=== PATIENT | male | born 1945 | race Caucasian/White ===

== ENCOUNTER → 2017-02-18 | Outpatient (CLI) | payer OTHER, MEDICARE | LOC: FIMAGING 13:42 → EDSTATUS 13:46 | PROVIDERS: ATTEND Orthopaedic Surgery Orthopaedic Surgery of the Spine | DX: M50.322 Other cervical disc degeneration at C5-C6 level (principal); M47.812 Spondylosis without myelopathy or radiculopathy, cervical region; M46.92 Unspecified inflammatory spondylopathy, cervical region ==

== ENCOUNTER 2017-04-09 05:45 | Inpatient (IN) | payer OTHER, MEDICARE ==
--- NOTE | 2017-04-08 16:58 | GHP ---
[f rep st] PREOP HISTORY AND PHYSICAL Corrected report DATE OF ADMISSION: 04/09/2017 HISTORY: The patient is a pleasant 72-year-old gentleman, who is left-hand dominant. He presented to me with a new problem, including bilateral scapular pain, loss of balance, and cervical spine pain. He also has paresthesias in both hands. On evaluation, the patient was found to have significant loss of range of motion, as well as spinal stenosis, severe at C5-6, moderate to severe at C4-5 and C6-7. He was also found to have mild myelopathy on exam. Therefore , surgery was recommended. He is electing to undergo the aforementioned surgery , which will be C4-C7 anterior diskectomy, fusion with instrumentation, as a 23- hour observation stay. Patient denies any loss of bowel or bladder control. Of note, I have done 2 prior lumbar surgeries for him. The first was an L2-L5 laminectomy and the second was a right-sided L4-5 microdiskectomy. He has done well from that standpoint. With regard to the patient's cervical spine, he has tried anti-inflammatories, rest, and a home stretching exercise regimen. Nonetheless, his symptoms have progressively worsened. On a 1-10 scale, he rates his daily pain as 6. SOCIAL HISTORY: Negative for tobacco and positive for social use of alcohol. Patient is retired. FAMILY HISTORY: Diabetes mellitus, congestive heart failure. PAST MEDICAL HISTORY: 1. Hypertension. 2. Hypercholesterolemia. 3. Nonocclusive coronary artery disease. PAST SURGICAL HISTORY: 1. Appendectomy. 2. Finger surgery. 3. Shoulder surgery. 4. The aforementioned L2-L5 laminectomy, followed by revision right L4-5 microdiskectomy. 5. Total hip arthroplasty. ALLERGIES: To medications are none. MEDICATIONS: 1. Lisinopril-hydrochlorothiazide 12/27.5. 2. Multivitamin. 3. Glucosamine. 4. He has stopped his aspirin. PHYSICAL EXAMINATION: VITALS SIGNS: Patient is 5 feet 10 inches tall and weighs 185 pounds. GENERAL: He is alert and oriented x3. CARDIAC: Regular rate and rhythm without detectable murmur, rub, or gallop. LUNGS: Clear to auscultation. He has no wheezing or rhonchi. NECK: Cervical range of motion is limited in left and right rotation. NEUROLOGIC: Sensation to bilateral upper extremities is intact with the exception of the left radial forearm is diminished. Patellar and Achilles reflexes are 2/4, biceps, brachial radialis, triceps reflexes are 2/4. Spurling test is negative x2. Patient is tender to palpation along the medial border of bilateral scapulae. RADIOGRAPHIC STUDIES: Plain films show severe degenerative disk disease with some scoliosis at C5-C7. MRI shows severe degenerative disk disease C5-6, C6-7 , moderate plus stenosis C6-7, severe stenosis seen C5-6 and the left disk herniation, moderate stenosis C4-5, and bilateral facet arthropathy C3-4 and C4- 5. There is no myelomalacia. Dr. Hunter Marquis saw the patient for cardiac clearance today and stated there are no cardiac contraindications to proceeding with the necessary noncardiac surgery. IMPRESSION: Severe spinal stenosis C5-6, moderate plus stenosis C4-5 and C6-7, with mild myelopathy. PLAN: The patient will undergo a C4-7 anterior diskectomy, fusion with instrumentation at [facility]. I expect just a 1 night stay postoperatively. Patient understands potential risks, benefits, and possible complications including, but not limited to, dural tear with CSF leak, meningitis, nerve root injury, partial or complete paralysis, infection, need for further surgery, dysphagia, junctional breakdown, nonunion, DVT, PE, pneumonia, stroke, heart attack, hemorrhage, blindness, and . Patient's questions were answered thoroughly, and he will be n.p.o. after midnight tonight. Copy requested to: Presurgery testing /[id number]/MODL elizabeth acc#, 04/09/17, linda HAWK
[2017-04-09] MEDS ORDERED: LR 1,000 ML IV ONE (06:03)
[2017-04-09] MEDS ORDERED: LIDOCAINE 1% 2 ML INJ ID PRN (06:03)
[2017-04-09] MEDS ORDERED: GABAPENTIN 300 MG CAP PO ONE (06:03)
[2017-04-09] MEDS ORDERED: ACETAMINOPHEN 500 MG TAB PO ONE (06:03)
[2017-04-09] MEDS ORDERED: ceFAZolin 2 GM/SWFI 2 GM/20 ML SYR IVP ONE (06:03)
[2017-04-09] MEDS ORDERED: LIDOCAINE 1% 2 ML INJ ONE (06:07)
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
[2017-04-09] MEDS ORDERED: MIDAZOLAM 2 MG/2 ML VIAL IVP ONE (06:40)
[2017-04-09] MEDS ORDERED: REMIFENTANIL HCL 1 MG VIAL ONE ×3 (06:46→11:15)
[2017-04-09] MEDS ORDERED: PROPOFOL/EMULSION 500 MG/50 ML BOTTLE IV ONE ×3 (06:46→11:15)
[2017-04-09] MEDS ORDERED: fentaNYL 100 MCG/2 ML INJ ONE (06:46)
[2017-04-09] MEDS ORDERED: PROPOFOL 200 MG/20 ML VIAL ONE (06:46)
[2017-04-09] MEDS ORDERED: LIDOCAINE 2% 100 MG/5 ML SYR ONE (06:51)
[2017-04-09] MEDS ORDERED: ROCURONIUM 50 MG/5 ML VIAL ONE (06:51)
[2017-04-09] MEDS ORDERED: THROMBIN (BOVINE) 20,000 UNIT VIAL TP ONE (06:57)
[2017-04-09] MEDS ORDERED: BACITRACIN 50,000 UNITS/10 ML SYR IRR ONE (06:58)
[2017-04-09] MEDS ORDERED: AVITENE POWDER 1 GM JAR TP ONE (07:00)
--- NOTE | 2017-04-09 07:12 | PDHPUP ---
History & Physical Update H&P update statement: This history and physical update is based on an assessment of the patient which was completed after admission or registration (within 24 hours), but prior to the surgery/procedure. H&P update: H&P reviewed & patient examined, no change in patient's condition since H&P completed
[2017-04-09] MEDS ORDERED: ONDANSETRON 4 MG/2 ML VIAL ONE (07:50)
[2017-04-09] MEDS ORDERED: DEXAMETHASONE 4 MG/ML VIAL ONE ×3 (07:50)
[2017-04-09] MEDS ORDERED: PHENYLEPHRINE 10 MG/ML SDV ONE (07:54)
[2017-04-09] MEDS ORDERED: ceFAZolin 1 GM VIAL ONE (10:01)
[2017-04-09] MEDS ORDERED: HYDROmorphONE/DILAUDID 2 MG/ML INJ ONE (11:33)
[2017-04-09] MEDS ORDERED: HYDROmorphONE/DILAUDID 1 MG/ML INJ IVP PRN ×2 (12:11→12:12)
[2017-04-09] MEDS ORDERED: POLYETHYLENE GLYCOL 3350 17 GM PKT PO PRN (12:11)
[2017-04-09] MEDS ORDERED: MAGNESIUM HYDROXIDE 30 ML UDCUP PO PRN (12:11)
[2017-04-09] MEDS ORDERED: BISACODYL 10 MG SUPP PR PRN (12:11)
[2017-04-09] MEDS ORDERED: ONDANSETRON 4 MG/2 ML VIAL IVP PRN ×2 (12:11→12:12)
[2017-04-09] MEDS ORDERED: ONDANSETRON DISINTEGRATING 4 MG TAB PO PRN (12:11)
[2017-04-09] MEDS ORDERED: LACTULOSE 20 GM/30 ML UDCUP PO PRN (12:11)
[2017-04-09] MEDS ORDERED: diphenhydrAMINE 25 MG CAP PO PRN (12:11)
--- NOTE | 2017-04-09 12:11 | POSTOPPROG ---
Post Op Note Date of Operation: 04/09/17 Surgeon: Cheli Kelly Jig Filler: Raj Marquez SA Anesthesiologist: Sandee Collado MD Anesthesia: GET(General Endotracheal) Pre-op Diagnosis: Severe DDD and stenosis C4-7 Post-op Diagnosis: same Indication: chronic neck pain and bilateral scapular pain Procedure: C4-7 ACDF/I Findings: severe DDD and mod-severe stenosis Inf/Abcess present in the surg proc area at time of surgery?: No Depth: Deep Incisional (Fascial) EBL: 50-100 Total fluids administered: 1600 cc Complications: None. No changes in neuromonitoring. Specimen(s): none
[2017-04-09] MEDS ORDERED: OXYCODONE/APAP 5/325 TAB PO PRN (12:12)
[2017-04-09] MEDS ORDERED: ACETAMINOPHEN 500 MG TAB PO PRN (12:12)
[2017-04-09] MEDS ORDERED: fentaNYL 100 MCG/2 ML INJ IVP PRN (12:12)
[2017-04-09] MEDS ORDERED: NALOXONE HCL 0.4 MG/ML INJ IVP PRN (12:12)
[2017-04-09] MEDS ORDERED: HYDROCODONE/APAP 5/325 TAB PO PRN (12:12)
--- NOTE | 2017-04-09 12:14 | POSTANESTH ---
Post Anesthetic Evaluation Cardiovascular Status: Normal, Stable, Similar to Pre-Op Cond Respiratory Status: Normal, Stable, Similar to Pre-op Cond. Level of Consciousness/Mental Status: Can Participate in Eval, Alert and Oriented Pain Control: Adequate, Prn Tx Ordered Nausea/Vomiting Control: Adequate, Prn Tx Ordered Complications Possibly Related to Anesthesia: None Noted
[2017-04-09] MEDS ORDERED: NS W/ 20 KCl/L 1,000 ML IV SCH (12:15)
[2017-04-09] MEDS ORDERED: ALPRAZolam 0.5 MG TAB PO PRN (12:21)
--- NOTE | 2017-04-09 14:35 | ASMTCMCOM ---
CM Note CM Note Notes: Pt is s/p C4-7 cervical fusion. 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 Pt lives in [place]. He has had [facility] in the past. CM will follow for any d/c needs. Date Signed: 04/09/2017 02:35 PM Electronically Signed By:JOSE Herron
[2017-04-09] MEDS ORDERED: ceFAZolin 2 GM/DEXTROSE 100 ML IV SCH (15:00)
[2017-04-09] MEDS: ceFAZolin 2 GM/SWFI 2 GM/20 ML SYR IVP SCH ×2 (16:26→22:50)
[2017-04-09] MEDS: oxyCODONE IR 5 MG TAB PO PRN ×2 (16:56→21:29)
[2017-04-09] MEDS: SENNOSIDES/DOCUSATE SODIUM TAB PO SCH (21:29)
--- NOTE | 2017-04-10 05:46 | GOP ---
[f rep st] OPERATIVE REPORT DATE OF OPERATION: 04/09/2017 SURGEON: Cheli Bishop MD MANAGER HI: Huber Marquez SA. ANESTHESIA: General endotracheal intubation. ANESTHESIOLOGIST: Marvin Collado MD. PREOPERATIVE DIAGNOSIS: 1. Severe spinal stenosis C5-6, and moderate to severe stenosis C4-5 and C6-7. 2. Severe degenerative disk disease C5-C7 and mild at C4-5. 3. Bilateral upper extremity radiculopathy. POSTOPERATIVE DIAGNOSIS: 1. Severe spinal stenosis C5-6, and moderate to severe stenosis C4-5 and C6-7. 2. Severe degenerative disk disease C5-C7 and mild at C4-5. 3. Bilateral upper extremity radiculopathy. PROCEDURE PERFORMED: C4-5, C5-6, and C6-7 anterior diskectomy, complete decompression with foraminot omies, anterior interbody arthrodesis with PEEK cages, and anterior instrumentation C4-C7. FINDINGS: Severe spinal stenosis C5-6, moderate to severe C4-5 and C6-7, severe degenerative disk di sease with lyms-hx-csie contact C5-C7. ESTIMATED BLOOD LOSS: 100 cc. INDICATIONS: Patient is a pleasant 72-year-old right-hand dominant gentleman well known to my practi ce. He has been having increasing neck pain, scapular pain bilaterally, intermittent loss of balance , and bilateral hand tingling and numbness. On a 1-10 scale, he rates his symptoms a 4 to a 5. On M RI, he was found to have severe stenosis at C5-6 and moderate to severe stenosis C4-5 and C6-7, as we ll as severe degenerative disk disease C5-C7. The patient has elected to undergo surgery. No guaran tees were given in regard to surgical outcome. Potential risks, benefits, and possible complications were thoroughly discussed with the patient including, but not limited to, dural tear with CSF leak, meningitis, nerve root injury, partial or complete paralysis, infection, need for further surgery, dy sphagia, junctional breakdown, DVT, PE, pneumonia, stroke, heart attack, hemorrhage, blindness, and d eath. Patient's questions were answered thoroughly. Note, no guarantees were given in regard to abdirashid gical outcome. DESCRIPTION OF PROCEDURE: After obtaining both written and verbal consent from the patient, he was b rought to the operating room where he underwent a general endotracheal intubation. Patient received IV antibiotics in the form of Ancef 2 g. Gimenez catheter was placed. Patient was positioned with his head and neck in mild extension on a Laureano headrest. A lateral fluoroscopic x-ray was obtained f or localization. The anterior aspect of the cervical spine was then prepped and draped in the normal sterile fashion. A timeout was performed with the entire operating room team confirming patient's n lauryn, date of , planned surgical procedure, including levels antibiotics given, and allergies to medications. After a sterile prep and drape of the anterior aspect of the cervical spine, and after a successful i ntubation, a left-sided paramedian longitudinal incision was made along the medial border of the ster nocleidomastoid muscle on the left. Intraoperative neuromonitoring, including somatosensory evoked p otentials, motor evoked potentials, and the EMGs were performed and baselines remained normal. After the incision, the platysma was sharply incised with Bovie cautery. The deep cervical fascia was als o incised along the medial border of the sternocleidomastoid muscle. The trachea and the esophagus w ere gently retracted toward the midline. The carotid sheath and its contents were identified and kaitlin ided. Structures were laterally displaced a few millimeters and the dissection was carried out media l to those structures. The pretracheal and prevertebral fascias were bluntly dissected. Anterior la rge osteophytes were identified and bent spinal needles were placed at disk spaces, and a lateral flu oroscopic x-ray showed these to be at C5-6 and C6-7. These were then removed and the longus coli mus cles were elevated with Bovie cautery. Initially the C4-5 level was addressed and a 14 mm [place] pin was placed, 1 at C4 and 1 at C5. Minimal distraction was placed. There was a calcified aspect of t he anterior longitudinal ligament that was taken down with pituitary rongeur and then a 15-blade knif e was used to create annulotomy at C4-5. The disk was removed via piecemeal using a 2-0 curved curet te and a pituitary Bancroft rongeur. This was done back to the posterior longitudinal ligament which wa s taken down with 1 and 1.5 mm Kerrison. This level showed moderate stenosis centrally, mainly due t o the posterior longitudinal ligament being hypertrophied and mild to moderate foraminal stenosis rosa aterally. The foramen were decompressed with a 2 mm Kerrison, taking care to protect the dura at all times. A 5 mm round bur was then used to create parallel endplates and the disk space was trialed. The best trial which was a [employer] Crystal PEEK Cage, was 10 mm. Therefore, a 16 x 13 x 10 mm lordosed cage was prepared using local autogenous saved bone graft mixed with demineralized bone m atrix. The 10 mm PEEK cage was then tamped into position at C4-5, and recessed about a millimeter. There were no changes in spinal cord monitoring. Then the C5-6 level was addressed. This level was severely degenerative with acvg-lu-fxll contact and the disk remnant was very small. It was almost a near auto fusion. The remnant of the disk was removed via curved curette and then a 5 mm round bur was used to open up the disk space. This was taken back to the posterior longitudinal ligament which again was very hypertrophied causing severe stenosis and spinal cord compression. The posterior kevin gitudinal ligament was taken down with a 1.5 and 2 mm Kerrison, while taking care to protect the dura and the exiting nerve roots at all times. Once it was fully decompressed, trials again were utilize d using a Spinal Elements Crystal PEEK Tray, and another 10 mm cage was appropriate. Therefore, a 16 x 13 mm x 10 mm lordosed cage was prepared again with bone graft and tamped into position at C5-6. Again, there were no changes in spinal cord monitoring. Then the C6-7 level was addressed. This lev el again was ytdh-yn-xivs contact with a very small remnant of disk remaining. The disk was removed via piecemeal using a 2-0 curved curette and pituitary Bancroft followed by the use of a 5 mm round and barrel shaped bur to get back to the posterior longitudinal ligament. The ligament was moderate to s everely hypertrophied, and had numerous attachments and ossifications within it to the underlying dur a. Therefore, not all of the posterior longitudinal ligament could be removed at this level due to c oncern for a dural tear that could be irreparable. Nonetheless, the spinal canal and neural foramen were fully decompressed. Another 16 x 13 x 10 mm lordosed PEEK cage was prepared and tamped into yevgeniy ce at C6-7 and recessed 1 mm. There were no changes in spinal cord monitoring. It should be noted t hat at each level, a micro nerve hook was used to palpate posterior to the bone graft and this showed no iatrogenic compression. Then, at this time, a LnK Plate and Screw System were utilized. The yevgeniy te was 66 mm in length and had to have the lordosis removed slightly from it, due to the patient's ve ry severe stiff neck that was not able to be created into full normal lordosis. Then, using a variet y of screws and self-drilling bits, screws were placed, 2 at C4, 2 at C5, 2 at C6, and 2 at C7, all w ith good purchase. All screws, with the exception of the left C5 and left C7, were 3.5 x 14 mm screw s. The other 2 were 4.0 x 14 mm screws with good purchase. After an AP and a lateral fluoroscopic x -ray showed good position of the internal fixation, including bone cages at C4-C7, the locking mechan ism was rotated x2 per each screw to avoid backout. The wound was irrigated. Hemostasis was obtaine d to the best of our ability using bipolar cautery and thrombin-soaked Gelfoam. The wound was comple tely dry prior to closure. The wound was closed using a 2-0 undyed Vicryl in an interrupted fashion in the platysma, followed by a 4-0 Prolene in the skin. Steri-Strips were applied. Sterile dressing was placed. Soft cervical collar was placed. Gimenez catheter was removed. Sponge and needle count were correct. Patient was extubated in the operating room, brought to the recovery room in satisfact ory condition. FLUIDS REPLACED: Given 1600 cc of lactated Ringer's. POSTOPERATIVE PLAN: Close neurologic observation, close airway observation, and PT, OT, and pain con trol. /[id number]/MODL
[2017-04-10] MEDS: oxyCODONE IR 5 MG TAB PO PRN ×2 (06:31→12:19)
[2017-04-10 07:36] VITALS: RESP 16
[2017-04-10] MEDS ORDERED: LISINOPRIL/HCTZ 10/12.5 MG 1 EA TAB PO SCH (09:00)
[2017-04-10] MEDS ORDERED: CYCLOBENZAPRINE 10 MG TAB PO PRN (09:03)
[2017-04-10] MEDS: SENNOSIDES/DOCUSATE SODIUM TAB PO SCH (09:14)
[2017-04-10] MEDS ORDERED: PNEUMOC 13-VAL CONJ-DIP CRM/PF 0.5 ML SYR IM ONE (09:25)
[2017-04-10 09:47] VITALS: O2SAT 96
[2017-04-10 12:23] VITALS: BP 152/92; PULSE 80; TEMP 98.5
--- NOTE | 2017-04-10 14:20 | SOAPPROG ---
SOAP Progress Note Assessment/Plan: Assessment: post op day 1, s/p C4-7 ACDF/I. Mild dysphagia. Saw speech path. Pt doing very well and ready for discharge. Plan: 04/10/17 14:17 discharge to home. Pt told to call for f/u appt.w/ Dr. Jackson who will follow him postop Objective: Vital Signs Temp Pulse Resp BP Pulse Ox 36.9 C 80 16 152/92 H 96 04/10/17 12:23 04/10/17 12:23 04/10/17 12:23 04/10/17 12:23 04/10/17 12:23 04/09/17 04/10/17 04/11/17 05:59 05:59 05:59 Intake Total 2165 Output Total 1675 425 Balance 490 -425 Pt states his arms feel good and no paresthesias.B BUE motor 5/5. No Celena's syndrome. Wound mildly edematous. No drainage. No sign of infection. Trachea midline. ICD10 Worksheet Patient Problems: Problems Problem Status Onset Chest pain, moderate coronary artery risk Acute Primary osteoarthritis of left hip Acute
--- NOTE | 2017-04-10 14:37 | ASMTCMCOM ---
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 CM available for any changes. DC Plan: Home Date Signed: 04/10/2017 02:36 PM Electronically Signed By:Amelia Chávez RN
--- NOTE | 2017-04-10 14:42 | GDS ---
[f rep st] DISCHARGE SUMMARY HOSPITAL COURSE: The patient is a very pleasant 72-year-old right-hand dominant gentleman well-known to my practice. He had been having bilateral scapular pain, intermittent loss, intermittent loss of balance, bilateral hand tingling and numbness, and increasing neck pain. He had tried a number of n onoperative treatments. He was found to have stenosis, as well as degenerative disk disease, and ult imately decided to undergo surgery. On the day of surgery, he was brought to the operating room and underwent general endotracheal intuba tion. He underwent a C4-C7 anterior diskectomy, fusion with instrumentation. At the time of surgery , findings were severe stenosis and severe degenerative disk disease. There were no intraoperative c omplications and neuro monitoring remained normal. Postoperatively, he did exceedingly well and stated that his upper extremity pain and tingling and nu mbness had resolved completely. He had been seen in physical therapy and occupational therapy, as we ll as speech therapy. He did have some dysphagia and is being discharged home on a dysphagia type 2 diet. The patient is being discharged home in satisfactory condition. He knows to call my office immediate ly if he is concerned about any postoperative complication or go to the nearest emergency room. He will be followed up postoperatively with Dr. Haris Jackson and will call his office for an appointme nt for either April 23 or for suture removal. Patient knows to stay off of anti-inflammatories until the fusion is solid, which will be typically a round 6 months. He also needs to avoid any heavy lifting more than 20 pounds and no jarring activiti es. Overall, he has done very well and is being discharged home in satisfactory condition. /[id number]/MODL
== END 2017-04-10 15:22 | disposition home or self-care (01) | DRG 473 ==
LOC: F3N 05:45
PROVIDERS: ADMIT Orthopaedic Surgery Orthopaedic Surgery of the Spine; ATTEND Orthopaedic Surgery Orthopaedic Surgery of the Spine
PROC: 4A1004G Monitoring of Central Nervous Electrical Activity, Intraoperative, Open Approach (ICD-10-PCS; principal; 2017-04-09 07:15)
PROC: 00NW0ZZ Release Cervical Spinal Cord, Open Approach (ICD-10-PCS; principal; 2017-04-09 07:15)
PROC: 0RB30ZZ Excision of Cervical Vertebral Disc, Open Approach (ICD-10-PCS; principal; 2017-04-09 07:15)
PROC: 0RG20A0 Fusion of 2 or more Cervical Vertebral Joints with Interbody Fusion Device, Anterior Approach, Anterior Column, Open Approach (ICD-10-PCS; principal; 2017-04-09 07:15)
DX: M50.121 Cervical disc disorder at C4-C5 level with radiculopathy (principal); M50.122 Cervical disc disorder at C5-C6 level with radiculopathy; M50.123 Cervical disc disorder at C6-C7 level with radiculopathy; M48.02 Spinal stenosis, cervical region; R13.10 Dysphagia, unspecified; I10 Essential (primary) hypertension; I25.10 Atherosclerotic heart disease of native coronary artery without angina pectoris; E78.5 Hyperlipidemia, unspecified; Z86.73 Personal history of transient ischemic attack (TIA), and cerebral infarction without residual deficits; Z23 Encounter for immunization
CPT/HCPCS: 92610-GN; 97161-GP; 97165-GO; C1713; G0009; G8978-GP-CH; G8979-GP-CH; G8980-GP-CH; G8987-GO-CI; G8988-GO-CI; G8989-GO-CI; G8996-GN-CK; G8997-GN-CH; G8998-GN-CK; J0690; J1100; J1170; J2001; J2370; J2405; J2704; J3010

== ENCOUNTER → 2017-05-16 | Outpatient (CLI) | payer OTHER, MEDICARE | LOC: FIMAGING 08:10 | PROVIDERS: ATTEND Physical Medicine & Rehabilitation Neuromuscular Medicine | DX: Z98.1 Arthrodesis status (principal) ==

== ENCOUNTER → 2017-07-12 | Outpatient (CLI) | payer OTHER, MEDICARE | LOC: FIMAGING 09:43 | PROVIDERS: ATTEND Physical Medicine & Rehabilitation Neuromuscular Medicine | DX: Z09 Encounter for follow-up examination after completed treatment for conditions other than malignant neoplasm (principal); M89.38 Hypertrophy of bone, other site; Z98.1 Arthrodesis status ==

== ENCOUNTER → 2017-10-08 | Outpatient (CLI) | payer OTHER, MEDICARE | LOC: FIMAGING 08:18 | PROVIDERS: ATTEND Physical Medicine & Rehabilitation Neuromuscular Medicine | DX: Z98.1 Arthrodesis status (principal) | CPT/HCPCS: G0103 ==